=== PATIENT | male | born 1955 | race Two or more races ===

== ENCOUNTER → 2017-02-11 | Day surgery (SDC) | payer MEDICAID | END | disposition home or self-care (01) | LOC: BMCIMAGING 08:26 | PROVIDERS: ATTEND Urology | PROC: 0VB03ZX Excision of Prostate, Percutaneous Approach, Diagnostic (ICD-10-PCS; principal; 2017-02-11) | DX: R97.20 Elevated prostate specific antigen [PSA] (principal) ==